=== PATIENT | male | born 1970 | race Caucasian/White ===

== ENCOUNTER 2019-01-28 15:49 | Emergency (ER) | payer OTHER ==
[2019-01-28] MEDS ORDERED: RINGERS SOLUTION,LACTATED 1,000 ML IV ONE (17:53)
[2019-01-28 18:17] LABS: ABSOLUTE LYMPHOCYTES (AUTO) 2.1 10^3/uL (0.5-4.7); ABSOLUTE MONOCYTES (AUTO) 0.5 10^3/uL (0.1-1.4); ABSOLUTE NEUT (AUTO) 8.5 10^3/uL (1.7-8.2); BASOPHILS % (AUTO) 0.4 % (0-2); EOSINOPHILS % (AUTO) 0.2 % (0-6); HEMOGLOBIN 14.7 g/dL (13.5-17.0); LYMPHOCYTES % (AUTO) 18.6 % (13-45); MEAN CORPUSCULAR HEMOGLOBIN 31.9 pg (27.0-33.4); MEAN CORPUSCULAR HGB CONC 34.2 g/dL (32.0-36.0); MEAN CORPUSCULAR VOLUME 93 fl (80-97); MONOCYTES % (AUTO) 4.4 % (3-13); PLATELET COUNT 272 10^3/uL (150-450); RED BLOOD COUNT 4.62 10^6/uL (4.35-5.55); SEGMENTED NEUTROPHILS % (AUTO) 76.4 % (42-78); TOTAL CELLS COUNTED % (AUTO) 100 %; WHITE BLOOD COUNT 11.1 10^3/uL (4.0-10.5)
[2019-01-28] MEDS ORDERED: THIAMINE HCL 100 MG, FOLIC ACID 1 MG in NORMAL SALINE 250 ML IV ONE (18:19)
--- NOTE | 2019-01-28 18:30 | ER Document Report ---
ED General - General Chief Complaint: ETOH Abuse Stated Complaint: ALTERED MENTAL STATUS Time Seen by Provider: 01/28/19 17:04 - HPI Notes: Patient is a 48-year-old male with a history of alcohol abuse who presents complaining of relapsing 6 months ago and having intermittent alcoholic intake since then. Patient states last drink was last night and states he had about 4 beers. Patient states that he has been exhausted recently because he is on tour and on a road bus. Patient's girlfriend well stated that she saw him drinking this morning as well, but patient states that he only drank last night. Patient states that he is only hungry right now, otherwise feels well. He has not had any recent illness. Patient states he does take Klonopin at night usually. Denies any further drug use. Patient states that he feels like he is ready to go home, but would like something to eat. Denies any headache, fever, neck pain , changes in vision/speech/mentation/hearing, URI, sore throat, chest pain, palpitations, syncope, cough, shortness of breath, wheeze, dyspnea, abdominal pain, nausea/vomiting/diarrhea, urinary retention, dysuria, hematuria, loss of control of bowel or bladder, numbness/tingling, saddle anesthesia, muscle paralysis/weakness, or rash. - Related Data Allergies/Adverse Reactions: No Known Allergies Allergy (Verified 01/28/19 17:42) Home Medications: Klonopin Past Medical History - Social History Smoking Status: Unknown if Ever Smoked Frequency of alcohol use: Heavy Drug Abuse: None Family History: Reviewed & Not Pertinent Patient has suicidal ideation: No Patient has homicidal ideation: No Review of Systems - Review of Systems -: Yes All other systems reviewed and negative Physical Exam - Vital signs Vitals: Temp Pulse Resp BP Pulse Ox 98.2 F 76 16 120/64 97 01/28/19 16:12 01/28/19 16:12 01/28/19 16:12 01/28/19 16:12 01/28/19 16:12 - Notes Notes: PHYSICAL EXAMINATION: GENERAL: Well-appearing, well-nourished and in no acute distress. A&Ox4. Answers questions appropriately. HEAD: Atraumatic, normocephalic. Non-tender. EYES: Pupils equal round and reactive to light, extraocular movements intact, sclera anicteric, conjunctiva are normal. No nystagmus. ENT: Nares patent and without discharge. oropharynx clear without exudates. No tonsilar hypertrophy or erythema. Moist mucous membranes. NECK: Normal range of motion, supple without lymphadenopathy. No rigidity/meningismus. No midline tenderness. LUNGS: Breath sounds clear to auscultation bilaterally and equal. No wheezes rales or rhonchi. HEART: Regular rate and rhythm without murmurs, rubs, gallops. ABDOMEN: Soft, nontender, nondistended abdomen. No guarding, no rebound. Normal bowel sounds present. No CVA tenderness bilaterally. Musculoskeletal: Ext b/l: FROM to passive/active. Strength 5+/5. No deficits noted. No bony tenderness of extremities. Extremities: No cyanosis, clubbing, or edema b/l. Peripheral pulses 2+. Capi llary refill less than 2 seconds. NEUROLOGICAL: NIH 0. GCS 15. Cranial nerves grossly intact. Normal speech, normal gait. Normal sensory, motor exams. Reflexes 2+ b/l. PSYCH: Normal mood, normal affect. SKIN: Warm, Dry, normal turgor, no rashes or lesions noted. Course - Re-evaluation Re-evalutation: 01/28/19 19:57 Patient is an afebrile, well-hydrated, 48-year-old male who presents for alcohol intake. Vitals are acceptable without significant tachycardia, tachypnea, or hypoxia. PE is otherwise unremarkable for any focal neurological deficits. Patient is not in any acute withdrawal at this time. Abdomen is soft and nontender. Lungs are clear to auscultation bilaterally. Cranial nerves grossly intact. Labs are unremarkable. Patient has received fluids as well as thiamine and folic acid. No further work-up warranted at this time. Patient is nontoxic-appearing and has eaten dinner without any problems. Patient has made appropriate eye contact, speech is clear without slurring, and has not shown any signs of gait instability. He is able to ambulate without any difficulty or falling over. He is alert and oriented x4. He is able to make decisions for himself at this time. Patient does have his girlfriend and other friends that will be taking him home and feel comfortable watching him tonight. Low suspicion for any sepsis, endocarditis, acute intracranial pathology, meningitis, fracture, acute abdomen, acute withdrawal, severe intoxication, or other systemic infection at this time. Patient is aware that this condition can change from initial presentation and that he needs monitor symptoms closely for any acute changes. Conservative measures otherwise for symptoms. Recheck with your PCM in 3-5 days or as needed otherwise. Consider consult with a detox center. Patient is declining at this time otherwise for detox. Return to the ED with any worsening/concerning symptoms otherwise as reviewed discharge. Patient is in agreement. - Vital Signs Vital signs: Temp Pulse Resp BP Pulse Ox 98.2 F 76 16 120/64 97 01/28/19 16:12 01/28/19 16:12 01/28/19 16:12 01/28/19 16:12 01/28/19 16:12 - Laboratory Result Diagrams: 01/28/19 17:50 01/28/19 17:50 Laboratory results interpreted by me: 01/28/19 01/28/19 17:50 17:50 WBC 11.1 H Absolute Neuts (auto) 8.5 H Sodium 145.2 H Discharge - Discharge Clinical Impression: Alcohol consumption binge drinking Condition: Stable Disposition: HOME, SELF-CARE Additional Instructions: Maintain adequate fluid and food intake Healthy diet tylenol/motrin if needed Monitor for any worsening symptoms Do not take other sedative medications when drinking Avoid drug/alcohol use Stop smoking Make sure you are staying hydrated enough to urinate and have normal BM's Recheck with your PCM in 3-5 days or as needed Consider voluntarily going to detox* Return to the ED with any worsening symptoms and/or development of fever, headache, changes in behavior/mentation/vision/speech, chest pain, palpitations, syncope, shortness of breath, trouble breathing, abdominal pain, n/v/d, blood in stool/urine, loss of control of bowel/bladder, urinary retention, muscle weakness/paralysis, saddle anesthesia, numbness/tingling, suicidal/homicidal ideations, visual/auditory hallucinations, or other worsening symptoms that are concerning to you. Prescriptions: Omeprazole 20 mg PO DAILY #14 tablet. Referrals: [facility] [Provider Group] - Follow up as needed [facility] [Other] - Follow up as needed
[2019-01-28 18:37] LABS: ALBUMIN 4.1 g/dL (3.5-5.0); ALKALINE PHOSPHATASE 86 U/L (38-126); ANION GAP 12 (5-19); ASPARTATE AMINO TRANSFERASE 40 U/L (17-59); BILIRUBIN,DIRECT 0.1 mg/dL (0.0-0.4); BILIRUBIN,TOTAL 0.3 mg/dL (0.2-1.3); BLOOD UREA NITROGEN 12 mg/dL (7-20); CALCIUM 8.7 mg/dL (8.4-10.2); CARBON DIOXIDE 26 mmol/L (22-30); CHLORIDE 107 mmol/L (98-107); GLUCOSE 92 mg/dL (75-110); TOTAL PROTEIN 6.9 g/dL (6.3-8.2)
[2019-01-28 18:58] LABS: APPEARANCE,URINE CLEAR; BILIRUBIN,URINE NEGATIVE (NEGATIVE); COLOR,URINE COLORLESS; GLUCOSE, URINE NEGATIVE (NEGATIVE); KETONES,URINE NEGATIVE (NEGATIVE); LEUKOCYTE ESTERASE,URINE NEGATIVE (NEGATIVE); NITRITE,URINE NEGATIVE (NEGATIVE); PROTEIN,URINE NEGATIVE (NEGATIVE); URINE SPECIFIC GRAVITY 1.005; UROBILINOGEN,URINE NEGATIVE mg/dL (<2.0)
[2019-01-28 19:18] LABS: URINE AMPHETAMINES SCREEN NEGATIVE; URINE BARBITURATES SCREEN NEGATIVE; URINE BENZODIAZEPINES SCREEN NEGATIVE; URINE COCAINE SCREEN NEGATIVE; URINE MARIJUANA (THC) SCREEN NEGATIVE; URINE METHADONE SCREEN NEGATIVE; URINE PHENCYCLIDINE SCREEN NEGATIVE
[2019-01-28 20:25] VITALS: BP 132/74
== END 2019-01-28 20:37 | disposition home or self-care (01) ==
LOC: ER 15:49
DX: F10.10 Alcohol abuse, uncomplicated (principal)
CPT/HCPCS: 36415; 83690; 85025; 80053; 81001; 80307; J3490; J3411; J7050; J7120